=== PATIENT | female | born 1985 | race African-American/Black ===

== ENCOUNTER 2016-12-26 10:21 | Outpatient (CLI) | payer OTHER ==
[~2016-12-26] VITALS: Ht 152.4 cm; Wt 87.5 kg
[2016-12-26 10:27] VITALS: BP 107/59
[2016-12-26] MEDS ORDERED: PRENATAL TABLE1 EAC3 PO (10:56)
[2016-12-26] MEDS ORDERED: EYE DROP15 ML BOTH EYES (10:56)
[2016-12-26 11:43] LABS: EOSINOPHIL (%) 1.3 % (0-5); EOSINOPHIL COUNT 0.1 K/uL (0-0.3); IMMATURE GRANULOCYTE (%) 0.2 % (0.0-0.7); IMMATURE GRANULOCYTE COUNT 0.1 K/uL; LYMPHOCYTE COUNT 1.2 K/uL (1.0-2.8); MCHC 33.2 G/DL (30.0-36.0); MCV 87.2 FL (83-99); MEAN PLAT.VOLUME 7.9 uM^3 (9.5-12.4); MONOCYTE (%) 6.7 % (3-12); MONOCYTE COUNT 0.3 K/uL (0-0.8); NEUTROPHIL (%) 67.6 % (45-76); NEUTROPHIL COUNT 3.2 K/uL (1.8-6.4); PLATELET COUNT 222 K/uL (156-360); RBC DIS.WIDTH-CV 13.7 % (11.8-14.6); RBC DIS.WIDTH-SD 42.2 % (39-53); RED BLOOD COUNT 3.21 M/uL (3.80-5.20); WHITE BLOOD COUNT 4.8 K/uL (4.1-10.2)
[2016-12-26 11:58] LABS: CHLORIDE 106 mEq/L (99-109); POTASSIUM 3.5 mEq/L (3.7-5.4); SODIUM 139 mEq/L (136-147)
[2016-12-26 12:01] LABS: GLUCOSE 76 mg/dL (70-99)
[2016-12-26 12:02] LABS: ANION GAP 13 MEQ/L (2-14); TOTAL BILIRUBIN 0.6 mg/dL (0.0-1.0)
[2016-12-26 12:04] LABS: ALKALINE PHOSPHATASE 80 IU/L (3-129); GFR ESTIMATE (CALCULATED) > 59 mL/min/
[2016-12-26 12:05] LABS: UREA NITROGEN (BUN) 2 mg/dL (9-23)
[2016-12-26 12:22] LABS: ADD MIUA? YES; BILIRUBIN NEGATIVE; BLOOD NEGATIVE; COLOR YELLOW ((YELLOW)); GLUCOSE (STRIP) NEGATIVE; KETONES NEGATIVE; LEUKOCYTES NEGATIVE; NITRITE NEGATIVE; PH, URINE 6.5 (5-8); PROTEIN (STRIP) NEGATIVE; SPECIFIC GRAVITY 1.005 (1.000-1.030); UROBILINOGEN 0.2 MG/DL (0.2-1.0)
[2016-12-26 12:31] LABS: BACTERIA 1+; CASTS NONE SEEN /LPF; CRYSTALS NONE SEEN; EPITHELIAL CELLS 1+; MUCUS NONE SEEN; RED BLOOD CELLS NONE SEEN /HPF (0-5); WHITE BLOOD CELLS NONE SEEN /HPF (0-5)
[2016-12-26 12:32] LABS: ANTI-HIV (AIDS STAT TEST) NONREACTIVE; INTERNAL CONTROL VALID? YES
[2016-12-26 12:43] LABS: HIV INDEX 0.07; HIV-1/2 AB/AG COMBO Nonreactive
[2016-12-26 12:44] LABS: AMPHETAMINES QUANT VALUE 0 NG/ML; BARBITUATES QUANT VALUE 0 NG/ML; BENZODIAZEPINES QUANT VALUE 0 NG/ML; BENZODIAZEPINES, URINE SCREEN Negative (200 ng/mL); MARIJUANA QUANT VALUE 0 NG/ML; OPIATES QUANTITATIVE VALUE 0 NG/ML; PHENCYCLIDINE QUANT VALUE 0 NG/ML
[2016-12-26 13:09] LABS: DRSB INTERNAL CONTROL PASS; PROBE CHECK PASS; SPECIMEN PROCESSING CONTROL PASS
[2016-12-26 16:08] LABS: CANDIDA DNA PROBE NEGATIVE; GARDNERELLA DNA PROBE NEGATIVE; INTERNAL CONTROL VALID? YES
[2016-12-27 12:37] LABS: CHLAMYDIA TRACHOMATIS NEGATIVE; NEISSERIA GONORRHOEAE NEGATIVE
== END 2016-12-26 15:00 | disposition home or self-care (01) ==
LOC: LDRP-OP 10:21 → 2WEST 10:22
PROVIDERS: Advanced Practice Midwife; Obstetrics & Gynecology
DX: O26.893 Other specified pregnancy related conditions, third trimester (principal); R39.89 Other symptoms and signs involving the genitourinary system; R10.30 Lower abdominal pain, unspecified; M54.9 Dorsalgia, unspecified; Z3A.32 32 weeks gestation of pregnancy
CPT/HCPCS: 59025; 76805; 80053; 81003; 82731; 85025; 86703; 87081; 87086; 87480; 87491; 87510; 87591; 87653; 87660; G0378

== ENCOUNTER 2016-12-28 11:01 | Emergency (ER) | payer OTHER ==
[~2016-12-28] VITALS: Ht 152.4 cm; Wt 90.3 kg
[~2016-12-28 11:01] MED LIST: EYE DROP15 ML BOTH EYES; PRENATAL TABLE1 EAC3 PO
[2016-12-28] MEDS ORDERED: AMOXICILLIN400 MG PO (11:30)
[2016-12-28 11:43] VITALS: BP 120/80
== END 2016-12-28 11:45 | disposition home or self-care (01) ==
LOC: EME 11:01
DX: O99.613 Diseases of the digestive system complicating pregnancy, third trimester (principal); K08.89 Other specified disorders of teeth and supporting structures
CPT/HCPCS: 99281; 99283

== ENCOUNTER 2017-01-17 11:37 | Outpatient (CLI) | payer OTHER ==
[~2017-01-17] VITALS: Ht 152.4 cm; Wt 89.0 kg
[~2017-01-17 11:37] MED LIST changes: +AMOXICILLIN400 MG PO
[2017-01-17 12:10] VITALS: BP 116/58
[2017-01-17] MEDS ORDERED: IRON160 M1 PO (12:26)
[2017-01-17 13:05] VITALS: BP 108/60
[2017-01-17 14:17] VITALS: BP 118/65
[2017-01-17 15:14] VITALS: BP 112/71
[2017-01-17 15:18] LABS: AMPHETAMINES QUANT VALUE 0 NG/ML; BARBITUATES QUANT VALUE 0 NG/ML; BENZODIAZEPINES QUANT VALUE 0 NG/ML; BENZODIAZEPINES, URINE SCREEN Negative (200 ng/mL); MARIJUANA QUANT VALUE 0 NG/ML; OPIATES QUANTITATIVE VALUE 0 NG/ML; PHENCYCLIDINE QUANT VALUE 0 NG/ML
[2017-01-17 16:52] LABS: ADD MIUA? YES; BILIRUBIN NEGATIVE; BLOOD NEGATIVE; COLOR YELLOW ((YELLOW)); GLUCOSE (STRIP) NEGATIVE; KETONES 15; LEUKOCYTES TRACE; NITRITE NEGATIVE; PH, URINE 7.5 (5-8); PROTEIN (STRIP) NEGATIVE; SPECIFIC GRAVITY 1.007 (1.000-1.030); UROBILINOGEN 0.2 MG/DL (0.2-1.0)
[2017-01-17 17:00] LABS: BACTERIA 3+ /HPF; EPITHELIAL CELLS RARE /HPF; MUCUS TRACE /LPF; RED BLOOD CELLS 0-5 /HPF (0-5); UCUL ADDED? NO; WHITE BLOOD CELLS 0-5 /HPF (0-5)
== END 2017-01-17 17:32 | disposition home or self-care (01) ==
LOC: LDRP-OP → 2WEST 11:38 → LDRP-OP 01-26 15:13
PROVIDERS: Advanced Practice Midwife
DX: M54.9 Dorsalgia, unspecified (principal); O99.89 Other specified diseases and conditions complicating pregnancy, childbirth and the puerperium; Z3A.35 35 weeks gestation of pregnancy
CPT/HCPCS: 59025; 80306 90; 81003; G0378

== ENCOUNTER 2017-01-29 11:09 | Outpatient (CLI) | payer OTHER ==
[~2017-01-29 11:09] MED LIST changes: +IRON160 M1 PO
[2017-01-29 11:38] VITALS: BP 137/78
[2017-01-29 12:19] LABS: ADD MIUA? NO; BILIRUBIN NEGATIVE; BLOOD NEGATIVE; COLOR YELLOW ((YELLOW)); GLUCOSE (STRIP) NEGATIVE; KETONES 5; LEUKOCYTES NEGATIVE; NITRITE NEGATIVE; PROTEIN (STRIP) NEGATIVE; UCUL ADDED? NO; UROBILINOGEN 0.2 MG/DL (0.2-1.0)
[2017-01-29 22:23] LABS: CANDIDA DNA PROBE NEGATIVE; GARDNERELLA DNA PROBE NEGATIVE; INTERNAL CONTROL VALID? YES
== END 2017-01-29 13:24 | disposition home or self-care (01) ==
LOC: LDRP-OP 11:09 → 2WEST 11:10 → LDRP-OP 03-17 19:12
PROVIDERS: Advanced Practice Midwife
DX: O26.893 Other specified pregnancy related conditions, third trimester (principal); M54.5 Low back pain; M41.9 Scoliosis, unspecified; B37.9 Candidiasis, unspecified; Z3A.37 37 weeks gestation of pregnancy
CPT/HCPCS: 59025; 81003; 87086; 87480; 87510; 87660; G0378

== ENCOUNTER 2017-02-01 08:24 | Outpatient (CLI) | payer OTHER ==
[~2017-02-01] VITALS: Ht 152.4 cm; Wt 87.9 kg
[2017-02-01 08:46] VITALS: BP 120/73
[2017-02-01 11:31] VITALS: BP 123/67
[2017-02-02] MEDS ORDERED: ACETAMINOPHEN-120 ML PO (07:48)
== END 2017-02-01 12:40 | disposition home or self-care (01) ==
LOC: LDRP-OP 08:24 → 2WEST 08:25 → LDRP-OP 03-17 13:43
DX: O47.1 False labor at or after 37 completed weeks of gestation (principal); Z3A.38 38 weeks gestation of pregnancy
CPT/HCPCS: 59025; G0378

== ENCOUNTER 2017-02-02 06:56 | Outpatient (CLI) | payer OTHER ==
[~2017-02-02] VITALS: Ht 152.4 cm; Wt 90.0 kg
[2017-02-02 07:14] VITALS: BP 121/78
[2017-02-02] MEDS ORDERED: ACETAMINOPHEN-120 ML PO (07:48)
[2017-02-02 08:34] VITALS: BP 135/76
== END 2017-02-02 09:57 | disposition home or self-care (01) ==
LOC: LDRP-OP 06:56 → 2WEST 06:57 → LDRP-OP 03-17 13:02
DX: O26.893 Other specified pregnancy related conditions, third trimester (principal); R10.9 Unspecified abdominal pain; Z3A.38 38 weeks gestation of pregnancy
CPT/HCPCS: 59025; G0378

== ENCOUNTER 2017-02-02 20:25 | Outpatient (CLI) | payer OTHER ==
[~2017-02-02] VITALS: Ht 152.4 cm; Wt 90.0 kg
[~2017-02-02 20:25] MED LIST changes: +ACETAMINOPHEN-120 ML PO
[2017-02-02 20:46] VITALS: BP 120/57
== END 2017-02-02 21:42 | disposition home or self-care (01) ==
LOC: LDRP-OP 20:25 → 2WEST 20:26 → LDRP-OP 03-17 10:14
DX: O47.1 False labor at or after 37 completed weeks of gestation (principal); Z3A.38 38 weeks gestation of pregnancy
CPT/HCPCS: 59025; G0378

== ENCOUNTER 2017-02-03 09:08 | Inpatient (IN) | payer OTHER ==
[2017-02-03] VITALS (16 sets, daily range): BP systolic 115–139; BP diastolic 62–93
[2017-02-03 14:03] LABS: EOSINOPHIL (%) 0.4 % (0-5); IMMATURE GRANULOCYTE (%) 0.2 % (0.0-0.7); INSTRUMENT ABS NEUTROPHIL CT 3.4 K/uL; MCH 29.1 PG (29.0-34.0); MCHC 32.7 G/DL (30.0-36.0); MEAN PLAT.VOLUME 8.2 uM^3 (9.5-12.4); MONOCYTE (%) 6.3 % (3-12); MONOCYTE COUNT 0.3 K/uL (0-0.8); NEUTROPHIL (%) 71.6 % (45-76); NEUTROPHIL COUNT 3.4 K/uL (1.8-6.4); PLATELET COUNT 186 K/uL (156-360); RBC DIS.WIDTH-CV 14.3 % (11.8-14.6); RBC DIS.WIDTH-SD 46.5 % (39-53); RED BLOOD COUNT 3.37 M/uL (3.80-5.20); WHITE BLOOD COUNT 4.8 K/uL (4.1-10.2)
[2017-02-04] VITALS (10 sets, daily range): BP systolic 118–137; BP diastolic 57–89
[2017-02-05 07:31] LABS: EOSINOPHIL (%) 1.4 % (0-5); EOSINOPHIL COUNT 0.1 K/uL (0-0.3); HEMATOCRIT 26.9 % (36.0-46.0); IMMATURE GRANULOCYTE (%) 0.8 % (0.0-0.7); LYMPHOCYTE COUNT 1.3 K/uL (1.0-2.8); MCH 29.4 PG (29.0-34.0); MCHC 32.3 G/DL (30.0-36.0); MCV 90.9 FL (83-99); MONOCYTE (%) 8.7 % (3-12); MONOCYTE COUNT 0.3 K/uL (0-0.8); NEUTROPHIL (%) 53.1 % (45-76); PLATELET COUNT 163 K/uL (156-360); RBC DIS.WIDTH-CV 14.3 % (11.8-14.6); RBC DIS.WIDTH-SD 47.6 % (39-53); RED BLOOD COUNT 2.96 M/uL (3.80-5.20); WHITE BLOOD COUNT 3.7 K/uL (4.1-10.2)
[2017-02-05 07:51] VITALS: BP 128/72
[2017-02-05] MEDS ORDERED: CHILDREN'S100 MG/51 PO (12:32)
[2017-02-05 15:18] VITALS: BP 126/88
[2017-02-05 23:24] VITALS: BP 118/71
[2017-02-06 07:58] VITALS: BP 117/74
[2017-02-06] MEDS ORDERED: FERROCITE324 MG PO (11:33)
[2017-02-06] MEDS ORDERED: DOCUSATE SODIU100 MG PO (11:33)
[2017-02-06] MEDS ORDERED: CHILDREN'S100 MG/59 PO (11:35)
== END 2017-02-06 15:36 | disposition home or self-care (01) | DRG 775 ==
LOC: LDRP-OP 09:08 → 2WEST 09:09 → LDRP-OP 03-17 22:09
PROVIDERS: Advanced Practice Midwife
PROC: 3E0S3BZ Introduction of Anesthetic Agent into Epidural Space, Percutaneous Approach (ICD-10-PCS; 2017-02-03)
PROC: 10E0XZZ Delivery of Products of Conception, External Approach (ICD-10-PCS; principal; 2017-02-04)
PROC: 10907ZC Drainage of Amniotic Fluid, Therapeutic from Products of Conception, Via Natural or Artificial Opening (ICD-10-PCS; 2017-02-04)
DX: O76 Abnormality in fetal heart rate and rhythm complicating labor and delivery (principal); D62 Acute posthemorrhagic anemia; Z37.0 Single live birth; Z3A.38 38 weeks gestation of pregnancy; H40.9 Unspecified glaucoma; D50.8 Other iron deficiency anemias; O99.013 Anemia complicating pregnancy, third trimester; O26.893 Other specified pregnancy related conditions, third trimester; O99.89 Other specified diseases and conditions complicating pregnancy, childbirth and the puerperium; O99.02 Anemia complicating childbirth; E66.9 Obesity, unspecified; O99.214 Obesity complicating childbirth; M41.9 Scoliosis, unspecified; J45.909 Unspecified asthma, uncomplicated; O99.52 Diseases of the respiratory system complicating childbirth; M54.9 Dorsalgia, unspecified; Z68.38 Body mass index [BMI] 38.0-38.9, adult; O09.43 Supervision of pregnancy with grand multiparity, third trimester; Z82.49 Family history of ischemic heart disease and other diseases of the circulatory system; Z82.5 Family history of asthma and other chronic lower respiratory diseases
CPT/HCPCS: 85025; 86850; 86900; 86901; C1755; G0378; J0595; J1050; J3010; J7120